=== PATIENT | female | born 1950 | race Caucasian/White ===

== ENCOUNTER 2017-04-12 08:13 | Day surgery (SDC) | payer OTHER, MEDICAID ==
[2017-04-12 08:48] VITALS: PULSE 79
[2017-04-12] MEDS ORDERED: LR 1,000 ML IV ONE ×2 (08:48→09:05)
--- NOTE | 2017-04-12 08:59 | PDGENHP ---
History & Physical Chief Complaint: Screening Relevant Physical Exam: GEN: NAD. Cardiac:RRR. Lungs: CTA B. Abd: Soft, nt,nd
--- NOTE | 2017-04-12 09:11 | PDANEPAE ---
ANE Past Medical History - Cardiovascular History Hx Hypertension: No Hx Arrhythmias: No Hx Chest Pain: No Hx Coronary Artery / Peripheral Vascular Disease: No Hx CHF / Valvular Disease: No Hx Palpitations: No - Pulmonary History Hx COPD: No Hx Asthma/Reactive Airway Disease: Yes Hx Recent Upper Respiratory Infection: No Hx Oxygen in Use at Home: No Hx Sleep Apnea: No Sleep Apnea Screening Result - Last Documented: Negative Pulmonary History Comment: HX OF BRONCHIAL ASTHMA - Neurologic History Hx Cerebrovascular Accident: No Hx Seizures: No Hx Dementia: No - Endocrine History Hx Diabetes: Yes Endocrine History Comment: IDDM - Renal History Hx Renal Disorders: No - Liver History Hx Hepatic Disorders: No - Neurological & Psychiatric Hx Hx Neurological and Psychiatric Disorders: No - Cancer History Hx Cancer: No - Congenital Disorder History Hx Congenital Disorders: No - GI History Hx Gastrointestinal Disorders: No - Other Health History 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 ANE Review of Systems Review of Systems: - Exercise capacity METS (RN): 4 METS ANE Patient History - Allergies Allergies/Adverse Reactions: Penicillins Allergy (Severe, Verified 05/16/15 12:25) Loss of consciousness - Home Medications Home Medications: Insulin Detemir [Levemir Flextouch] 5 unit SQ BID@08,20 05/04/15 [Last Taken 09/25 08:00] Melatonin [Melatonin 5 mg] 10 mg PO HS 05/16/15 [Last Taken 05/15/15] Insulin Aspart [novoLOG] 0 - 5 units SC Q6 PRN 05/19/15 [Last Taken Unknown] - NPO status NPO Since - Liquids (Date): 04/12/17 NPO Since - Liquids (Time): 07:00 NPO Since - Solids (Date): 04/10/17 - Smoking Hx Smoking Status: Former smoker - Family Anes Hx Family Hx Anesthesia Complications: NONE ANE Labs/Vital Signs - Vital Signs Blood Pressure: 132/104 Heart Rate: 79 Respiratory Rate: 18 O2 Sat (%): 90 Height: 167.64 cm Weight: 52.617 kg ANE Physical Exam - Airway Mallampati Score: Class 2 Mouth exam: dentures - ASA Status ASA Status: II ANE Anesthesia Plan Total IV Anesthesia: Yes
[2017-04-12] MEDS ORDERED: PROPOFOL 200 MG/20 ML VIAL ONE (09:12)
--- NOTE | 2017-04-12 09:43 | GIREPORT ---
[facility] [place] Surgical Services - Endoscopy Department Patient Name: Susan Armas Procedure Date: 04/12/2017 9:06 AM Patient Type: Outpatient Attending / ER Physician: Venkata Pimentel MD Procedure: Colonoscopy Indications: Screening for colorectal malignant neoplasm. Providers: Venkata Pimentel MD Medicines: Monitored Anesthesia Care Complications: No immediate complications. Description of Procedure: After obtaining informed consent, the scope was passed under direct vis ion. Throughout the procedure, the patient's blood pressure, pulse, and oxyg en saturations were monitored continuously. The Colonoscope with irrigatio n channel was introduced through the anus and advanced to the terminal il eum, with identification of the appendiceal orifice and IC valve. The colono scopy was performed without difficulty. The patient tolerated the procedure w ell. The quality of the bowel preparation was good. Findings: The perianal and digital rectal examinations were normal. The terminal ileum appeared normal. A 4 mm polyp was found in the sigmoid colon. The polyp was sessile. The polyp was removed with a cold snare. Resection and retrieval were compl ete. Verification of patient identification for the specimen was done by the physician and nurse using the patient's name and date. Estimated blood loss was minimal. The retroflexed view of the distal rectum and anal verge was normal and showed no anal or rectal abnormalities. Estimated Blood Loss: Estimated blood loss: none. Post Op Diagnosis: - The examined portion of the ileum was normal. - One 4 mm polyp in the sigmoid colon, removed with a cold snare. Resec hyun and retrieved. - The distal rectum and anal verge are normal on retroflexion view. Recommendation: - Discharge patient to home (with escort). - Resume previous diet. - Continue present medications. - Repeat colonoscopy in 5-10 years for surveillance based on pathology results. If the polyp is found to be adenomatous, a repeat colonoscopy in 5 years is recommended. Otherwise a repeat colonoscopy in 10 years is recommended. - Await pathology results. Results are available within 10 days. - Thank you for allowing me to participate in the care of your patient. Attending Participation: I personally performed the entire procedure. Venkata Pimentel MD Venkata Pimentel MD 04/12/2017 9:43:48 AM This report has been signed electronicallyDanasir Pimentel MD Number of Addenda: 0 Note Initiated On: 04/12/2017 9:06 AM Total Procedure Duration Time 0 hours 16 minutes 57 seconds [email or web address]
[2017-04-12] MEDS ORDERED: ONDANSETRON 4 MG/2 ML VIAL IVP PRN (09:45)
[2017-04-12] MEDS ORDERED: LR 500 ML IV PRN (09:45)
[2017-04-12] MEDS ORDERED: fentaNYL 100 MCG/2 ML INJ IVP PRN (09:45)
[2017-04-12] MEDS ORDERED: NALOXONE HCL 0.4 MG/ML INJ IVP PRN (09:45)
--- NOTE | 2017-04-12 09:46 | POSTANESTH ---
Post Anesthetic Evaluation Cardiovascular Status: Normal, Stable Respiratory Status: Normal, Stable Level of Consciousness/Mental Status: Can Participate in Eval Pain Control: Adequate, Prn Tx Ordered Nausea/Vomiting Control: Adequate, Prn Tx Ordered Complications Possibly Related to Anesthesia: None Noted
[2017-04-12 10:37] VITALS: TEMP 98.4
[2017-04-12 11:20] VITALS: BP 131/53; RESP 18; O2SAT 97
== END 2017-04-12 11:26 | disposition home or self-care (01) ==
LOC: FSGY 08:13
PROVIDERS: ATTEND Internal Medicine Gastroenterology
PROC: 0DBE8ZX Excision of Large Intestine, Via Natural or Artificial Opening Endoscopic, Diagnostic (ICD-10-PCS; principal; 2017-04-12 09:30)
DX: Z12.11 Encounter for screening for malignant neoplasm of colon (principal); D12.5 Benign neoplasm of sigmoid colon
CPT/HCPCS: J2704

== ENCOUNTER 2017-10-08 03:33 | Emergency (ER) | payer OTHER, MEDICAID ==
[2017-10-08] MEDS ORDERED: NS 1,000 ML IV ONE (04:59)
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
[2017-10-08 06:58] VITALS: BP 128/76
== END 2017-10-08 07:00 | disposition home or self-care (01) ==
DX: B02.9 Zoster without complications (principal); E10.65 Type 1 diabetes mellitus with hyperglycemia; E86.9 Volume depletion, unspecified; Z87.891 Personal history of nicotine dependence

== ENCOUNTER 2018-04-09 08:29 | Emergency (ER) | payer OTHER, MEDICAID ==
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
[2018-04-09 09:20] VITALS: BP 133/69
[2018-04-09] MEDS ORDERED: HYDROCODONE/APAP 5/325 TAB PO ONE (09:40)
== END 2018-04-09 10:07 | disposition home or self-care (01) ==
LOC: EDUNIT#
DX: S42.032A Displaced fracture of lateral end of left clavicle, initial encounter for closed fracture (principal); E10.9 Type 1 diabetes mellitus without complications; Z87.891 Personal history of nicotine dependence; Y93.9 Activity, unspecified; Y92.9 Unspecified place or not applicable
CPT/HCPCS: 73030; 99283; A4565

== ENCOUNTER 2018-09-13 13:42 | Emergency (ER) | payer OTHER, MEDICAID ==
--- NOTE | 2018-09-13 14:37 | EDPHY ---
H & P Time Seen by Provider: 09/13/18 14:13 HPI/ROS: CHIEF COMPLAINT: Bloating, abdominal pain, nausea HISTORY OF PRESENT ILLNESS: The patient is a 67-year-old female presents emergency department with complaints of abdominal pain, bloating and nausea. The patient was concerned that she may have gotten sick from "imitation chicken " that she 5-6 days ago. 3 days ago she became ill. She describes tense abdominal bloating. She has diffuse abdominal discomfort. She has had no significant diarrhea. No fevers or chills. REVIEW OF SYSTEMS: 10 systems were reveiwed and are negative with the exception of the elements mentioned in the history of present illness. Past Medical/Surgical History: Includes diabetes type 1, kidney stone Past surgical history: Kidney stone removal Social history: Patient does not smoke Smoking Status: Former smoker Physical Exam: Vitals noted GENERAL: Well-appearing, in no acute distress, alert. HEENT: Eyes normal to inspection, normal pharynx, no signs of dehydration. NECK: Normal, supple. RESPIRATORY: Clear to auscultation bilaterally, no rales, rhonchi or wheezing. CVS: Regular rate and rhythm, no rubs, murmurs, or gallops. ABDOMEN: Soft, nontender, mild bloating, no organomegaly. BACK: Normal to inspection, no CVA tenderness. SKIN: Normal color, no rash, warm, dry. No pallor. EXTREMITIES: No pedal edema, no calf tenderness, no Homans sign or cords, no joint swelling. NEURO/PSYCH: Alert and oriented, normal mood and affect, normal motor sensory exam. Constitutional: Initial Vital Signs Temperature (C) 36.7 C 09/13/18 13:49 Heart Rate 93 09/13/18 13:49 Respiratory Rate 18 09/13/18 13:49 Blood Pressure 107/56 L 09/13/18 13:49 O2 Sat (%) 93 09/13/18 13:49 O2 Delivery Mode Room Air Allergies/Adverse Reactions: Penicillins Allergy (Severe, Verified 09/13/18 13:49) Loss of consciousness Home Medications: Medication Instructions Recorded Insulin Detemir [Levemir Flextouch] 5 unit SQ BID@08,20 05/04/15 Melatonin [Melatonin 5 mg] 10 mg PO HS 05/16/15 Hydrocodone/APAP 5/325 [[place] 1 tab PO Q6H PRN #10 tab 05/19/15 5/325] Insulin Aspart [novoLOG] 0 - 5 units SC Q6 PRN 05/19/15 levOFLOXACIN [levAQUIN] 500 mg PO DAILY #3 tab 05/19/15 Acyclovir 800 mg PO 5XD #35 tab 10/08/17 Hydrocodone/APAP 5/325 [[place] 1 - 2 tab PO Q6H PRN #15 tab 10/08/17 5/325 (*)] Hydrocodone/APAP 5/325 [[place] 1 - 2 each PO Q4-6PRN PRN #20 tab 04/09/18 5/325] Ibuprofen [Motrin] 800 mg PO Q8 #20 tab 04/09/18 Ondansetron Odt [Zofran Odt 4 mg 4 mg PO Q4PRN PRN #7 tab 09/13/18 (*)] Medical Decision Making - Diagnostics Imaging Results: Imaging Impressions Abdomen CT 09/13/18 14:38 Impression: 1. No urinary tract obstruction or nephrolithiasis. 2. No CT evidence of appendicitis, diverticulitis, abscess or bowel obstruction. 3. No hepatomegaly or splenomegaly. 4. Minimal free fluid in the pelvis with scattered stool and fluid in the colon which may represent viral gastroenteritis. However, no bowel obstruction or pneumoperitoneum. Findings and recommendations discussed with Emergency Department physician, Marleni Dominguez, at 1557 hours, 09/13/2018. Final report concurs with initial preliminary interpretation. ED Course/Re-evaluation: In the emergency department I discussed possible etiologies with the patient. I answered all her questions. Was concerned with the patient's abdominal discomfort and bloating. Because of this a CT scan was ordered. I discussed this with the patient. An IV was placed. Laboratory studies were obtained. Patient's white count is normal. Patient is anemic with hematocrit of 33. Previous hematocrit was 26. Patient's chemistry, LFTs and lipase were normal. Full UA is pending. The UA negative 1535: Patient returned from CT imaging. She is complaining of abdominal pain. She is given fentanyl 50 mcg IV and Zofran [address] of the abdomen pelvis: Please refer the dictated report. Minimal free fluid in the pelvis. There is fluid and stool in the colon. No obstruction or perforation. I discussed results with the patient. I answered all her questions. Patient feels comfortable being discharged. She was given warnings prior to leaving. She will return with worsening symptoms. Differential Diagnosis: My differential includes but is not limited to small-bowel obstruction, perforation, mesenteric ischemia, ascites, renal insufficiency, hepatitis - Data Points Laboratory Results: Laboratory Results 09/13/18 14:25 09/13/18 14:25 09/13/18 09/13/18 09/13/18 14:45 14:25 14:25 WBC 7.21 10^3/uL 10^3/uL (3.80-9.50) RBC 3.30 10^6/uL L 10^6/uL (4.18-5.33) Hgb 11.2 g/dL L g/dL (12.6-16.3) Hct 33.2 % L % (38.0-47.0) MCV 100.6 fL H fL (81.5-99.8) MCH 33.9 pg pg (27.9-34.1) MCHC 33.7 g/dL g/dL (32.4-36.7) RDW 12.6 % % (11.5-15.2) Plt Count 204 10^3/uL 10^3/uL (150-400) MPV 12.1 fL H fL (8.7-11.7) Neut % (Auto) 75.3 % H % (39.3-74.2) Lymph % (Auto) 11.5 % L % (15.0-45.0) [place] % (Auto) 12.2 % % (4.5-13.0) Eos % (Auto) 0.6 % % (0.6-7.6) Baso % (Auto) 0.1 % L % (0.3-1.7) Nucleat RBC Rel Count 0.0 % % (0.0-0.2) Absolute Neuts (auto) 5.43 10^3/uL 10^3/uL (1.70-6.50) Absolute Lymphs (auto) 0.83 10^3/uL L 10^3/uL (1.00-3.00) Absolute Monos (auto) 0.88 10^3/uL H 10^3/uL (0.30-0.80) Absolute Eos (auto) 0.04 10^3/uL 10^3/uL (0.03-0.40) Absolute Basos (auto) 0.01 10^3/uL L 10^3/uL (0.02-0.10) Absolute Nucleated RBC 0.00 10^3/uL 10^3/uL (0-0.01) Immature Gran % 0.3 % % (0.0-1.1) Immature Gran # 0.02 10^3/uL 10^3/uL (0.00-0.10) Sodium 136 mEq/L mEq/L (135-145) Potassium 4.3 mEq/L mEq/L (3.5-5.2) Chloride 104 mEq/L mEq/L (97-110) Carbon Dioxide 25 mEq/l mEq/l (22-31) Anion Gap 7 mEq/L mEq/L (6-14) BUN 11 mg/dL mg/dL (7-23) Creatinine 0.6 mg/dL mg/dL (0.6-1.0) Estimated GFR > 60 Glucose 94 mg/dL mg/dL (70-100) Calcium 9.0 mg/dL mg/dL (8.5-10.4) Total Bilirubin 0.8 mg/dL mg/dL (0.1-1.4) Conjugated Bilirubin 0.4 mg/dL mg/dL (0.0-0.5) Unconjugated Bilirubin 0.4 mg/dL mg/dL (0.0-1.1) AST 36 IU/L IU/L (14-46) ALT 25 IU/L IU/L (9-52) Alkaline Phosphatase 91 IU/L IU/L (38-126) Total Protein 7.4 g/dL g/dL (6.3-8.2) Albumin 3.9 g/dL g/dL (3.5-5.0) Lipase 144 IU/L IU/L (23-300) Urine Color JULIANA Urine Appearance MODERATELY TURBID Urine pH 5.0 (5.0-7.5) Ur Specific [place] 1.019 (1.002-1.030) Urine Protein NEGATIVE (NEGATIVE) Urine Ketones 1+ H (NEGATIVE) Urine Blood NEGATIVE (NEGATIVE) Urine Nitrate NEGATIVE (NEGATIVE) Urine Bilirubin NEGATIVE (NEGATIVE) Urine Urobilinogen NEGATIVE EU EU (0.2-1.0) Ur Leukocyte Esterase NEGATIVE (NEGATIVE) Urine RBC NONE SEEN /hpf /hpf (0-3) Urine WBC 1-3 /hpf /hpf (0-3) Ur Epithelial Cells TRACE /lpf /lpf (NONE-1+) Hyaline Casts 5-15 /lpf /lpf (0-1) Urine Mucus TRACE /lpf /lpf (NONE-1+) Urine Glucose NEGATIVE (NEGATIVE) Medications Given: Discontinued Medications Hydrocodone Bitart/Acetaminophen ([place] 5/325) 1 tab PO EDNOW ONE Stop: 09/13/18 16:03 Last Admin: 09/13/18 16:02 Dose: 1 tab Departure - Departure Disposition: Home, Routine, Self-Care Clinical Impression: Abdominal pain Qualifiers: Abdominal location: generalized Qualified Code(s): R10.84 - Generalized abdominal pain Condition: Fair Instructions: Gas and Bloating (ED), Abdominal Pain (ED) Additional Instructions: Return with increasing pain, vomiting, fever or any other concerns. Referrals: Colleen Burgos PA [Primary Care Provider] - 2-3 days without fail Prescriptions: Ondansetron Odt [Zofran Odt 4 mg (*)] 4 mg PO Q4PRN PRN #7 tab PRN Reason: For Nausea & Vomiting
[2018-09-13 14:51] LABS: PLATELET COUNT 204 10^3/uL (150-400)
[2018-09-13] MEDS ORDERED: IOPAMIDOL (ISOVUE-300) 100 ML BTL ONE (15:18)
[2018-09-13] MEDS ORDERED: fentaNYL 100 MCG/2 ML INJ ONE (15:39)
[2018-09-13] MEDS ORDERED: ONDANSETRON 4 MG/2 ML VIAL ONE (15:40)
[2018-09-13] MEDS ORDERED: HYDROCODONE/APAP 5/325 TAB ONE (15:46)
[2018-09-13 16:01] VITALS: BP 127/57
[2018-09-13] MEDS ORDERED: HYDROCODONE/APAP 5/325 TAB PO ONE (16:02)
[2018-09-13] MEDS ORDERED: HYDROCOD/APAP 5/325 PREPACK#6 BTL TAKEHOME ONE (16:29)
== END 2018-09-13 16:37 | disposition home or self-care (01) ==
DX: R10.84 Generalized abdominal pain (principal); E11.9 Type 2 diabetes mellitus without complications; Z88.0 Allergy status to penicillin
CPT/HCPCS: J2405; J3010; Q9967